=== PATIENT | female | born 1970 | race Caucasian/White ===

== ENCOUNTER 2017-03-25 11:04 | Emergency (ER) | payer OTHER ==
[2017-03-25 11:18] VITALS: RESP 20
--- NOTE | 2017-03-25 12:17 | ED ---
General Adult HPI - General Chief complaint: Upper Respiratory Infection Stated complaint: congested Time Seen by Provider: 03/25/17 12:03 Source: patient, RN notes reviewed Mode of arrival: ambulatory Limitations: no limitations - History of Present Illness Initial comments: 47-year-old female presents to the emergency department with a chief complaint of cough cold like symptoms. Patient states that this for about a week. Patient's extremities are clear to admission is serious. Patient is a smoker. Patient states just feels like she can't cough anything up and feels tight in her chest. Patient states she's had a runny nose for the [id number] cold medicine does help with this. They were concerned due to her continued symptoms so she thought she might need something else to get through this. Patient denies any recent fever, chills, shortness of breath, chest pain, back pain, abdominal pain, nausea vomiting, numbness or tingling, dysuria or hematuria, constipation or diarrhea, headaches or visual changes, or any other current symptoms. - Related Data Home Medications Medication Instructions Recorded Confirmed Phenytoin Sodium Extended 400 mg PO DAILY 07/04/14 03/25/17 [Dilantin] Previous Rx's Medication Instructions Recorded Ibuprofen [Motrin] 800 mg PO Q6HR PRN #60 tab 07/08/14 Albuterol Nebulized [Ventolin 2.5 mg INHALATION Q4H PRN #25 nebu 07/13/15 Nebulized] Allergies Allergy/AdvReac Type Severity Reaction Status Date / Time No Known Allergies Allergy Verified 03/25/17 11:17 Review of Systems ROS Statement: Those systems with pertinent positive or pertinent negative responses have been documented in the HPI. ROS Other: All systems not noted in ROS Statement are negative. Past Medical History Past Medical History: Seizure Disorder Additional Past Medical History / Comment(s): epilepsy, last seizure 2007 History of Any Multi-Drug Resistant Organisms: None Reported Past Surgical History: Orthopedic Surgery Past Psychological History: Anxiety Smoking Status: Current every day smoker Past Alcohol Use History: None Reported Past Drug Use History: None Reported General Exam - General Exam Comments Initial Comments: General exam: Alert, active, comfortable in no apparent distress Head: Normocephalic Eyes: Normal reaction of pupils, equal size, normal range of extraocular motion Ears: normal external ear canals, pink tympanic membranes with normal cone of light Nose: clear with pink turbinates Throat: no erythema or exudates with normal sized tonsils Neck: no masses, no nuchal rigidity Chest: no chest wall deformity Lungs: equal air entry with no crackles or wheeze CVS: S1 and S2 normal with no audible mumurs, regular rhythm Abdomen: no hepatosplenomegaly, normal bowel sounds, no guarding or rigidity Spine: no scoliosis or deformity Skin: no rashes Neurological: No focal deficits, tone is normal in all 4 extremities Limitations: no limitations Course Vital Signs 03/25/17 03/25/17 11:15 12:00 Temperature 99.0 F Pulse Rate 100 Respiratory 20 20 Rate Blood Pressure 131/88 O2 Sat by Pulse 98 Oximetry Medical Decision Making - Medical Decision Making 47-year-old female presents with appears to be an upper respiratory infection. Some we'll start patient on steroids. We discussed close follow-up with her doctor return parameters all her questions. She stated she understood and she is in agreement with this plan. All questions have been answered. She'll be discharged - Radiology Data Radiology results: report reviewed, image reviewed Disposition Clinical Impression: Upper respiratory infection Disposition: HOME SELF-CARE Condition: Stable Instructions: Upper Respiratory Infection (ED) Additional Instructions: Please use medication as discussed. Please follow up with family doctor if symptoms have not improved over the next two days. Please return to the emergency room if your symptoms increase or worsen or for any other concerns. Referrals: Zack Quiroz MD [Primary Care Provider] - 1-2 days Time of Disposition: 12:33
--- NOTE | 2017-03-25 12:30 | XR ---
EXAMINATION TYPE: XR chest 2V DATE OF EXAM: 03/25/2017 COMPARISON: Prior chest x-ray 07/13/2015 HISTORY: Cough TECHNIQUE: Frontal and lateral views of the chest are obtained. FINDINGS: There is no focal air space opacity, pleural effusion, or pneumothorax seen. The cardiac silhouette size is within normal limits. There is a mild spinal curvature as on prior exam. The oss eous structures are intact. IMPRESSION: No acute cardiopulmonary process.
[2017-03-25 12:40] VITALS: BP 135/80; PULSE 95; TEMP 99
== END 2017-03-25 12:39 | disposition home or self-care (01) ==
LOC: EC 11:04
DX: J06.9 Acute upper respiratory infection, unspecified (principal); G40.909 Epilepsy, unspecified, not intractable, without status epilepticus; F17.200 Nicotine dependence, unspecified, uncomplicated; Z79.899 Other long term (current) drug therapy
CPT/HCPCS: 71020; 99283

== ENCOUNTER 2017-06-19 08:54 | Emergency (ER) | payer OTHER ==
[2017-06-19 09:22] VITALS: BP 161/95; PULSE 93; RESP 20; TEMP 98.4
--- NOTE | 2017-06-19 10:06 | ED ---
General Adult HPI - General Chief complaint: Dental/Oral Stated complaint: DENTAL ABSCESS Time Seen by Provider: 06/19/17 09:33 Source: patient, RN notes reviewed Mode of arrival: ambulatory Limitations: no limitations - History of Present Illness Initial comments: Patient for 47-year-old female who presents emergency room today with a chief complaint of increased dental pain. Patient does not that she's had infection that she was dealing with shortly after [place]. States swelling did go down she was using some [id number] medicines for this. Patient states that over the last today she's noticed increased swelling once again. She states there has been drainage. She states that she is worried about infection. She' ll try to get into a dentist. Patient denies medical point her symptoms. Patient denies any recent fever, chills, shortness of breath, chest pain, back pain, abdominal pain, nausea or vomiting, numbness or tingling, headaches or visual changes, or any other complaints. - Related Data Home Medications Medication Instructions Recorded Confirmed Phenytoin Sodium Extended 400 mg PO DAILY 07/04/14 06/19/17 [Dilantin] Ibuprofen [Advil] 400 mg PO Q6H PRN 06/19/17 06/19/17 LORazepam [Ativan] 0.5 mg PO DAILY PRN 06/19/17 06/19/17 Previous Rx's Medication Instructions Recorded Penicillin V Potassium [Pen Vee K] 500 mg PO QID #40 tablet 06/19/17 Allergies Allergy/AdvReac Type Severity Reaction Status Date / Time No Known Allergies Allergy Verified 06/19/17 09:30 Review of Systems ROS Statement: Those systems with pertinent positive or pertinent negative responses have been documented in the HPI. ROS Other: All systems not noted in ROS Statement are negative. Past Medical History Past Medical History: Seizure Disorder Additional Past Medical History / Comment(s): epilepsy, last seizure 2007 History of Any Multi-Drug Resistant Organisms: None Reported Past Surgical History: Orthopedic Surgery Past Psychological History: Anxiety Smoking Status: Current every day smoker Past Alcohol Use History: None Reported Past Drug Use History: None Reported General Exam - General Exam Comments Initial Comments: General: The patient is awake and alert, in no distress, and does not appear acutely ill. Eye: Pupils are equal, round and reactive to light, extra-ocular movements are intact. No nystagmus. There is normal conjunctiva bilaterally. No signs of icterus. Ears, nose, mouth and throat: There are moist mucous membranes and no oral lesions. Patient is a fractured tooth of tooth #22. Patient tender in the common in this area. There is no abscess visualized. Uvula midline. Patient swallows without difficulty. Neck: The neck is supple, there is no tenderness or JVD. Musculoskeletal: Normal ROM, no tenderness. Strength 5/5. Sensation intact. Pulses equal bilaterally 2+. Neurological: A&O x 3. CN II-XII intact, There are no obvious motor or sensory deficits. Coordination appears grossly intact. Speech is normal. Skin: Skin is warm and dry and no rashes or lesions are noted. Psychiatric: Cooperative, appropriate mood & affect, normal judgment. Limitations: no limitations Course Vital Signs 06/19/17 09:20 Temperature 98.4 F Pulse Rate 93 Respiratory 20 Rate Blood Pressure 161/95 O2 Sat by Pulse 98 Oximetry Medical Decision Making - Medical Decision Making Patient will be started on antibiotics of penicillin. She is advised following up with the dentist next week. Advised return if symptoms increase worsen or for any other concerns. Disposition Clinical Impression: Dental abscess Disposition: HOME SELF-CARE Condition: Good Instructions: Dental Abscess (ED) Additional Instructions: Please use medication as discussed. Please follow-up with family doctor in the next 2 days of symptoms have not improved. Please return to emergency room if the symptoms increase or worsen or for any other concerns. Prescriptions: Penicillin V Potassium [Pen Vee K] 500 mg PO QID #40 tablet Referrals: Zack Quiroz MD [Primary Care Provider] - 1-2 days Time of Disposition: 10:05
== END 2017-06-19 10:10 | disposition home or self-care (01) ==
LOC: EC 08:54
DX: K04.7 Periapical abscess without sinus (principal); S02.5XXA Fracture of tooth (traumatic), initial encounter for closed fracture; G40.909 Epilepsy, unspecified, not intractable, without status epilepticus; F17.200 Nicotine dependence, unspecified, uncomplicated; Z79.899 Other long term (current) drug therapy; X58.XXXA Exposure to other specified factors, initial encounter
CPT/HCPCS: 99282

== ENCOUNTER → 2020-05-03 | Outpatient (CLI) | payer SELFPAY ==
--- NOTE | 2020-05-03 13:44 | ECHOS ---
STRESS ECHOCARDIOGRAM LUMASON: N/A Vial INDICATIONS: Chest pain MEDICATIONS: BASELINE HEART RATE: 80 BASELINE BLOOD PRESSURE: 151/81 MAXIMUM HEART RATE: 152 MAXIMUM BLOOD PRESSURE: 186/80 85% MPHR: 145 100% MPHR: 170 METS: 7.9 MAXIMUM STAGE REACHED: 3 TOTAL EXERCISE TIME: 6:34 CLINICAL INFORMATION: Baseline rhythm is a sinus mechanism, rate of 80, normal axis and intervals. Normal echocardiogram. Baseline blood pressure 151/81 mmHg. Patient exercised on Donnie protocol for 6 minutes, 34 seconds reaching peak rate 152 beats per minute which is equal to 89% maximum predicted heart rate. Peak blood pressure 186/80 mmHg. Test was terminated due to fatigue. There were no chest pain. Electrocardiograph monitoring revealed no evidence of diagnostic ischemic ST deviation. FINDINGS: Baseline echocardiogram revealed normal wall motion. At peak exercise, there was normal wall motion augmentation with no hypokinesis or dyskinesis. CONCLUSION: 1. Decreased exercise tolerance with normal electrocardiographic response to exercise. 2. Normal stress echocardiogram with no evidence of stress-induced ischemia. MMODL / IJN: [id number] /
== END | disposition home or self-care (01) ==
LOC: RADNMMAIN 08:51
PROVIDERS: ATTEND Family Medicine
DX: R07.89 Other chest pain (principal); R06.02 Shortness of breath
CPT/HCPCS: 93351

== ENCOUNTER → 2023-03-10 | Outpatient (CLI) | payer OTHER ==
--- NOTE | 2023-03-10 11:24 | US ---
EXAMINATION TYPE: US abdomen complete DATE OF EXAM: 03/10/2023 COMPARISON: NONE CLINICAL INDICATION: Female, 53 years old with history of R19.00 INTRA-ABD AND PELVIC SWELLING, MASS AND LUM; Pelvic mass, bloating TECHNIQUE: Multiple sonographic images of the abdomen are obtained. FINDINGS: EXAM MEASUREMENTS: Liver Length: 17.8 cm Gallbladder Wall: 0.2 cm CBD: 0.5 cm Spleen: 10.0 cm Right Kidney: 10.2 x 4.2 x 4.7 cm Left Kidney: 9.8 x 4.9 x 5.6 cm Pancreas: visualized portions wnl, limited by overlying midline bowel gas Liver: measures in upper limits or normal Gallbladder: cholelithiasis Evidence for sonographic Pollard's sign: no CBD: wnl Spleen: wnl Right Kidney: dilated renal pelvis Left Kidney: wnl Upper IVC: wnl Abd Aorta: wnl The liver is homogenous. No focal lesion identified. The intrahepatic portion of the IVC and proxima l abdominal aorta are within normal limits. Cholelithiasis demonstrated. No wall thickening or perich olecystic fluid. Contracted appearance. Per firer kiln, negative sonographic Pollard sign. Common brittni e duct is unremarkable. The visualized portions of the pancreas are homogenous. The spleen is unrem arkable. Kidneys are symmetric and free of hydronephrosis. No renal lesions are seen. Prominent rig ht renal pelvis. IMPRESSION: 1. No acute process. 2. Cholelithiasis without evidence for acute cholecystitis.
--- NOTE | 2023-03-10 11:32 | US ---
EXAMINATION TYPE: US pelvis complete transvag DATE OF EXAM: 03/10/2023 COMPARISON: NONE CLINICAL INDICATION: Female, 53 years old with history of R19.00 INTRA-ABD AND PELVIC SWELLING, MASS AND LUM; Pelvic mass, bloating TECHNIQUE: . Transabdominal sonographic images of the pelvis were acquired. Transvaginal sonographi c images were medically necessary to better assess the following anatomy: endometrium and ovaries Date of LMP: unknown EXAM MEASUREMENTS: Uterus: 10.5 x 5.3 x 7.5 cm Endometrial Stripe: 0.6 cm Right Ovary: 2.3 x 1.6 x 1.5 cm Left Ovary: not seen 1. Uterus: anteverted, enlarged, bulky, heterogenous, multiple fibroids with largest measuring 3.4 x 3.0 x 2.9cm 2. Endometrium: limited visualization, appears wnl as seen 3. Right Ovary: wnl 4. Left Ovary: not seen 5. Bilateral Adnexa: wnl 6. Posterior cul-de-sac: wnl 10.9 x 9.4 x 10.0cm hypoechoic mass seen midline pelvis superior to uterus and bladder, possible uter ine fibroid IMPRESSION: 1. Multiple fibroids identified within the uterus. Additional 10.9 cm hypoechoic mass in the midline pelvis superior to the uterus and bladder. This may represent a pedunculated subserosal fibroid vers us other etiologies. Further evaluation with CT abdomen and pelvis with IV and oral contrast is recom mended. 2. Limited evaluation of the endometrium. 3. Nonvisualization of the left ovary.
== END | disposition home or self-care (01) ==
LOC: RADUSWWP 09:58
PROVIDERS: ATTEND Family Medicine
DX: K80.20 Calculus of gallbladder without cholecystitis without obstruction (principal)
CPT/HCPCS: 76700; 76830; 76856